=== PATIENT | female | born 2000 | race Two or more races ===

== ENCOUNTER 2021-03-16 17:37 | Inpatient (IN) | payer MEDICAID ==
[~2021-03-16] VITALS: Ht 154.9 cm; Wt 65.3 kg
[2021-03-16 18:40] LABS: Eosinophils # (auto) 0 10 ^3/uL (0-0.8); Monocytes # (auto) 0.9 10 ^3/uL (0-1.3)
[2021-03-16 18:43] LABS: Potassium 3.7 mmol/L (3.5-5.1)
[2021-03-16 18:45] LABS: Basophils # (auto) 0.1 10 ^3/uL (0-0.2); Basophils % (auto) 0.5 % (0.0-2.0); Eosinophils % (auto) 0.2 % (0.0-7.0); Hematocrit 36.3 % (36.0-46.0); Hemoglobin 11.5 g/dL (12.2-16.2); Lymphocytes # (auto) 1.7 10 ^3/uL (0.4-5.4); Lymphocytes % (auto) 13.4 % (10.0-50.0); Mean Corpuscular Hemoglobin 23.7 pg (28.0-32.0); Mean Corpuscular Hgb Conc. 31.7 g/dL (32.0-36.0); Mean Corpuscular Volume 74.8 fL (80.0-100.0); Monocytes % (auto) 7.4 % (0.0-12.0); Neutrophils # (auto) 10.1 10 ^3/uL (1.6-8.6); Neutrophils % (auto) 78.5 % (37.0-80.0); Red Blood Cells 4.85 10^6/uL (4.0-5.20); White Blood Cell 12.9 10^3/uL (4.4-10.8)
[2021-03-16 18:50] LABS: BUN/Creatinine Ratio 20.3; Calcium 9.3 mg/dL (8.5-10.1)
[2021-03-16 18:52] LABS: Bilirubin, Total 0.3 mg/dL (0.2-1.0); Total Protein 8.3 g/dL (6.4-8.2)
[2021-03-16] MEDS ORDERED: METOCLOPRAMIDE HCL 5MG/ml INJ 2ml VIAL IV ONE (19:00)
[2021-03-16 19:07] LABS: Urine Amorphous Crystal FEW /hpf (None Seen); Urine Bacteria FEW /hpf (None Seen); Urine Blood Negative /uL (Negative); Urine Mucus FEW (None Seen); Urine Specific Gravity 1.022 (1.001-1.035); Urine WBC 18 /hpf (0 - 5)
[2021-03-16 19:21] LABS: Amphetamine Screen, Urine NEGATIVE (NEGATIVE); Barbiturate Scree,Urine NEGATIVE (NEGATIVE); Benzodiazephine Screen, Urine POSITIVE (NEGATIVE); Cannabinoid Screen, Urine POSITIVE (NEGATIVE); Cocaine Screen, Urine NEGATIVE (NEGATIVE); Opiate Scree,Urine NEGATIVE (NEGATIVE); Phencyclidine Screen, Urine NEGATIVE (NEGATIVE)
[2021-03-16] MEDS ORDERED: LORazepam 2MG/ML-1ML VIAL ONE (20:10)
[2021-03-16] MEDS ORDERED: LORazepam 2MG/ML-1ML VIAL IV ONE (20:15)
[2021-03-16] MEDS ORDERED: LACO100T PO (21:29)
[2021-03-16] MEDS ORDERED: CLOB10TA2 PO (21:29)
[2021-03-16] MEDS ORDERED: DOCUSATE SOD 100 MG CAP PO PRN (21:30)
[2021-03-16] MEDS ORDERED: ONDANSETRON HCL 4 MG/2 ML VIAL IV PRN (21:30)
[2021-03-16] MEDS ORDERED: ACETAMINOPHEN 325 MG TAB PO PRN (21:30)
[2021-03-16] MEDS ORDERED: NITROGLYCERIN 0.4 MG SL TAB SL PRN (21:30)
[2021-03-16] MEDS ORDERED: HYDROcodone-ACET 5/325MG TAB PO PRN (21:30)
[2021-03-16] MEDS ORDERED: MORPHINE SULF INJ 2 MG/ML SYRINGE 1ML IV PRN (21:30)
[2021-03-16] MEDS ORDERED: LORazepam 2MG/ML-1ML VIAL IV PRN (21:30)
[2021-03-16] MEDS ORDERED: MORPHINE SULFATE 4 MG/ML SYR/VIAL IV PRN (21:30)
[2021-03-16 23:50] VITALS: BP 104/59
[2021-03-17 05:00] VITALS: BP 105/62
[2021-03-17] MEDS ORDERED: [UNRECOGNIZED DRUG - CODE] PO (05:34)
[2021-03-17 06:08] LABS: Basophils # (auto) 0.1 10 ^3/uL (0-0.2); Eosinophils # (auto) 0 10 ^3/uL (0-0.8); Mean Corpuscular Hgb Conc. 32.3 g/dL (32.0-36.0); Nucleated Red Blood Cells % 0.1 %
[2021-03-17 06:12] LABS: Basophils % (auto) 0.7 % (0.0-2.0); Eosinophils % (auto) 0.4 % (0.0-7.0); Hematocrit 34.8 % (36.0-46.0); Hemoglobin 11.2 g/dL (12.2-16.2); Lymphocytes % (auto) 18.2 % (10.0-50.0); Mean Corpuscular Volume 74.5 fL (80.0-100.0); Monocytes # (auto) 1.3 10 ^3/uL (0-1.3); Monocytes % (auto) 11.7 % (0.0-12.0); Neutrophils # (auto) 7.6 10 ^3/uL (1.6-8.6); Red Blood Cells 4.68 10^6/uL (4.0-5.20)
[2021-03-17 06:25] LABS: Calcium 9.1 mg/dL (8.5-10.1); Potassium 3.6 mmol/L (3.5-5.1)
[2021-03-17 06:31] LABS: Albumin 3.7 g/dL (3.4-5.0); BUN/Creatinine Ratio 31.5; Bilirubin, Total 0.4 mg/dL (0.2-1.0); Total Protein 8.4 g/dL (6.4-8.2)
[2021-03-17 08:10] VITALS: BP 94/53
[2021-03-17 09:00] VITALS: BP 94/53
[2021-03-17] MEDS: SODIUM CHLORIDE 0.9% 1,000 ML IV SCH ×2 (09:52→14:10)
[2021-03-17] MEDS ORDERED: cefTRIAXone 1GM/50ML D5W 50 ML IV SCH (10:00)
[2021-03-17 12:53] VITALS: BP 101/64
[2021-03-17 17:00] VITALS: BP 113/66
[2021-03-17] MEDS ORDERED: PATIENTS OWN MEDICATION PO SCH (22:00)
[2021-03-17] MEDS ORDERED: ONFI 10 MG PO SCH (22:00)
[2021-03-17] MEDS ORDERED: BRIVIACT 50 MG PO SCH (22:00)
[2021-03-17] MEDS ORDERED: BRIVIACT PO SCH (22:00)
[2021-03-17] MEDS ORDERED: LACOSAMIDE 50 MG TAB PO SCH (22:00)
[2021-03-18] MEDS ORDERED: ONFI 10 MG PO SCH (10:00)
== END 2021-03-17 19:00 | disposition left against medical advice (07) | DRG 53 ==
LOC: EDBD 17:37 → ER 17:37 → TELE-CENTR 21:29
PROVIDERS: ADMIT Nurse Practitioner; ATTEND Nurse Practitioner
DX: R56.9 Unspecified convulsions (principal); Z20.822 Contact with and (suspected) exposure to COVID-19; Z53.29 Procedure and treatment not carried out because of patient's decision for other reasons
CPT/HCPCS: 36415; 70450; 80053; 80307; 81001; 81025; 85025; 87426; 96374; G0378; J0696